=== PATIENT | male | born 1970 | race Caucasian/White ===

== ENCOUNTER 2018-01-27 08:57 | Day surgery (SDC) | payer OTHER ==
[2018-01-27] MEDS ORDERED: MIDAZOLAM 1 MG/ML 2 ML INJ ×3 (11:20)
[2018-01-27] MEDS ORDERED: FENTAnyl 50 MCG/ML VIAL (11:21)
== END 2018-01-27 12:56 | disposition home or self-care (01) ==
LOC: GIL 08:57
DX: Z12.11 Encounter for screening for malignant neoplasm of colon (principal); D12.0 Benign neoplasm of cecum; D12.7 Benign neoplasm of rectosigmoid junction; D12.5 Benign neoplasm of sigmoid colon
CPT/HCPCS: 45380; 88305